=== PATIENT | female | born 1985 | race Caucasian/White ===

== ENCOUNTER 2016-06-04 08:58 | Day surgery (SDC) | payer OTHER ==
[2016-06-01 18:03] VITALS: BMI 35.9
[~2016-06-04 08:58] MED LIST: LACTATED RINGERS 1,000 ML IV SCH
[2016-06-04 09:13] VITALS: RESP 18; TEMP 98.5
[2016-06-04] MEDS ORDERED: LACTATED RINGERS 1,000 ML IV ONE (09:13)
[2016-06-04] MEDS ORDERED: LIDOCAINE 1% 20 ML VIAL (10MG/ML) FOR IV START INTRADERMA ONE (09:13)
[2016-06-04] MEDS ORDERED: PROPOFOL 10 MG/ML 20 ML VIAL IV ONE (10:08)
--- NOTE | 2016-06-04 10:21 | P.PCN ---
Date of Procedure: 06/04/16 Procedure(s) Performed: BRIEF HISTORY: Patient is a 30-year-old pleasant white female, scheduled for an elective colonoscopy as a part of evaluation of intermittent rectal bleeding for the last 1 year duration. PROCEDURE PERFORMED: Colonoscopy. PREOPERATIVE DIAGNOSIS: Intermittent rectal bleeding. IV sedation per Anesthesia. PROCEDURE: After informed consent was obtained, the patient, was brought into the endoscopy unit. IV conscious sedation was administered by Anesthesia under continuous monitoring. Digital rectal examination was normal. Initially the Olympus CF-160 flexible video colonoscope was then inserted in the rectum, gradually advanced into the cecum without any difficulty. Careful examination was performed as the scope was gradually being withdrawn. Ileocecal valve and the appendiceal orifice were visualized and appeared normal. Prep was excellent. Mucosa of the cecum, ascending colon, transverse colon, descending colon, sigmoid colon, and rectum appeared normal. Retroflexion was performed in the rectum and small internal hemorrhoids were seen. The patient tolerated the procedure well. IMPRESSION: Normal-appearing colon from rectum to cecum . Small internal hemorrhoids. RECOMMENDATIONS: Findings of this examination were discussed with the patient as well as a family. She was advised to be a high-fiber diet and fiber supplements on a regular basis.
[2016-06-04 11:00] VITALS: BP 134/73; PULSE 70
== END 2016-06-04 11:38 | disposition home or self-care (01) ==
LOC: ORWHC2ENDO 08:58
PROVIDERS: ATTEND Internal Medicine Gastroenterology
DX: K64.8 Other hemorrhoids (principal); Z87.19 Personal history of other diseases of the digestive system; G43.909 Migraine, unspecified, not intractable, without status migrainosus; Z79.1 Long term (current) use of non-steroidal anti-inflammatories (NSAID); Z79.3 Long term (current) use of hormonal contraceptives; Z79.899 Other long term (current) drug therapy
CPT/HCPCS: 81025; 45378; J2704

== ENCOUNTER → 2018-06-20 | Outpatient (CLI) | payer OTHER ==
[2018-06-20 20:36] LABS: Iron Saturation 25.75 (12.00-45.00)
== END | disposition home or self-care (01) ==
LOC: LABWHC1 12:31
PROVIDERS: ATTEND Family Medicine
DX: R79.0 Abnormal level of blood mineral (principal)
CPT/HCPCS: 36415; 82728; 83540; 83550

== ENCOUNTER 2018-06-22 08:02 | Day surgery (SDC) | payer OTHER ==
[2018-06-20 09:07] VITALS: BMI 35.5
[~2018-06-22 08:02] MED LIST changes: +DEXAMETHASONE SOD PHOSPHATE 10 MG/ML 1 ML VIAL IV ONE; +LIDOCAINE 1% 20 ML VIAL (10MG/ML) FOR IV START INTRADERMA PRN; +SCOPOLAMINE 1.5MG/72HR PATCH TRANSDERM ONE; +ceFAZolin IN SWFI 2 GM/20 ML SYRINGE IVP ONE
[2018-06-22] MEDS: HEPARIN SODIUM,PORCINE 5,000 UNIT/ML 1 ML VIAL SQ ONE ×2 (08:42→09:00)
[2018-06-22] MEDS: ONDANSETRON 4 MG/2 ML VIAL IVP ONE ×2 (08:42→11:38)
[2018-06-22] MEDS ORDERED: MIDAZOLAM 2 MG/2 ML VIAL IV ONE (08:49)
[2018-06-22] MEDS ORDERED: INDOCYANINE GREEN 25 MG VIAL IV STA (08:56)
--- NOTE | 2018-06-22 08:57 | P.GSHP ---
History of Present Illness H&P Date: 06/22/18 CHIEF COMPLAINT: Cholecystitis HISTORY OF PRESENT ILLNESS: The patient is a 32-year-old female who presents with history of epigastric including right upper quadrant abdominal pain. She underwent diagnostic studies for her gallbladder. Separately her clinical picture was consistent with cholecystitis. Now she presents for surgical intervention. PAST MEDICAL HISTORY: Please see list PAST SURGICAL HISTORY: Please see list MEDICATIONS: Please see list ALLERGIES: Denies. SOCIAL HISTORY: No illicit drug use or recent tobacco use FAMILY HISTORY: Pertinent for gallbladder disease REVIEW OF ORGAN SYSTEMS: CONSTITUTIONAL: No reports of fevers or chills. HEENT: Denies any troubles with the vision or hearing. ENDOCRINE: No reports of hypothyroidism. No diabetes. RESPIRATORY: No recent pneumonias. CARDIOVASCULAR: Denies chest pain or palpitations GI: No blood in stools or constipation. MUSCULOSKELETAL: Has occasional joint pain including back pain. NEURO: No seizure disorders or headaches. No recent stroke. PSYCH: No depression or suicidal ideation. GENITOURINARY: No active blood in urine. No urinary hesitancy. HEMATOLOGIC: No personal or family history of DVTs or pulmonary emboli. SKIN: No skin cancer. PHYSICAL EXAM: VITAL SIGNS: Afebrile vital signs stable GENERAL: Well-developed pleasant in no acute distress. HEENT: No scleral icterus. Extraocular movements grossly intact. Moist buccal mucosa. NECK: Supple without lymphadenopathy. CHEST: Unlabored respirations. Equal bilateral excursions. CARDIOVASCULAR: Regular rate regular rhythm rhythm. Distal 2+ pulses. ABDOMEN: Soft, nondistended. Tender along the epigastrium and right upper quadrant. MUSCULOSKELETAL: No clubbing, cyanosis, or edema. NEURO: Cranial nerves II to XII within normal limits. No focal or lateralizing signs. PSYCH: Alert and oriented to person, place and time. SKIN: Well-perfused good skin turgor. ASSESSMENT: 1. Epigastric and right upper quadrant abdominal pain 2. Chronic cholecystitis 3. Symptomatic gallstones. PLAN: 1. Will need a robotic cholecystectomy possible open. Benefits and risks were described. 2. Heparin for DVT prophylaxis 5000 units. 3. Antibiotic prophylaxis. Past Medical History Past Medical History: Asthma, Fibromyalgia, GERD/Reflux, Pneumonia, Skin Disorder Additional Past Medical History / Comment(s): migraines, past hx sinus tachycardia, arthritis and carpal tunnel in hands, eczema, IBS, History of Any Multi-Drug Resistant Organisms: None Reported Past Surgical History: Adenoidectomy, Ear Surgery, Orthopedic Surgery, Tonsillectomy Additional Past Surgical History / Comment(s): sinus surgery, rt foot surgery x 3 Past Anesthesia/Blood Transfusion Reactions: Previous Problems w/ Anesthesia Additional Past Anesthesia/Blood Transfusion Reaction / Comment(s): takes awhile to wake up Smoking Status: Never smoker - Past Family History Mother Family Medical History: No Reported History Medications and Allergies Home Medications Medication Instructions Recorded Confirmed Type Etonogestrel [Nexplanon ( 68 mg SQ DIRECTED 06/01/16 06/22/18 History control implant)] Beclomethasone Dip 80 Mcg/Puff 1 puff INHALATION BID 06/20/18 06/22/18 History [Qvar 80 mcg] Cetirizine HCl [Zyrtec] 10 mg PO HS 06/20/18 06/22/18 History Famotidine [Pepcid] 20 mg PO BID 06/20/18 06/22/18 History Ferrous Sulfate [Feosol] 325 mg PO DAILY 06/20/18 06/22/18 History Montelukast [Singulair] 10 mg PO HS 06/20/18 06/22/18 History Pramipexole [Mirapex] 0.5 mg PO HS 06/20/18 06/22/18 History Allergies Allergy/AdvReac Type Severity Reaction Status Date / Time No Known Allergies Allergy Verified 06/20/18 08:58 Surgical - Exam Vital Signs Temp Pulse Resp BP Pulse Ox 99.1 F 82 16 131/80 100 06/22/18 08:24 06/22/18 08:24 06/22/18 08:24 06/22/18 08:24 06/22/18 08:24
[2018-06-22] MEDS ORDERED: LIDOCAINE 1% INJ 10MG/ML (20 ML MDV) ONE (09:23)
[2018-06-22] MEDS ORDERED: INDOCYANINE GREEN 25 MG VIAL IV ONE (09:23)
[2018-06-22] MEDS ORDERED: NEOSTIGMINE 1 MG/ML 10 ML VIAL ONE (09:23)
[2018-06-22] MEDS ORDERED: SUCCINYLCHOLINE CHLORIDE 100 MG/5 ML SYR IV ONE (09:23)
[2018-06-22] MEDS ORDERED: VECURONIUM 10 MG VIAL IV ONE (09:23)
[2018-06-22] MEDS ORDERED: fentaNYL (PF) 50 MCG/ML 2 ML AMP ONE (09:23)
[2018-06-22] MEDS ORDERED: ROPIVACAINE 5 MG/ML 30 ML VIAL ONE (09:23)
[2018-06-22] MEDS ORDERED: MIDAZOLAM 2 MG/2 ML VIAL ONE (09:23)
[2018-06-22] MEDS ORDERED: GLYCOPYRROLATE 0.2 MG/ML 2 ML VIAL ONE (09:23)
[2018-06-22 09:32] LABS: Basophils % (A) 0 %; Eosinophils % (A) 1 %; HCT 37.8 % (34.0-46.0); HGB 12.6 gm/dL (11.4-16.0); Lymphocytes # (A) 2.1 k/uL (1.0-4.8); Lymphocytes % (A) 33 %; MCHC 33.4 g/dL (31.0-37.0); Mean Platelet Volume 6.4; Monocytes # (A) 0.3 k/uL (0-1.0); Monocytes % (A) 5 %; Neutrophils # (A) 3.8 k/uL (1.3-7.7); Neutrophils % (A) 59 %; Platelet Count 267 k/uL (150-450); RBC 4.06 m/uL (3.80-5.40); RDW 12.8 % (11.5-15.5); WBC 6.4 k/uL (3.8-10.6)
[2018-06-22 09:39] LABS: ALT 30 U/L (9-52); AST 28 U/L (14-36); Albumin 4.2 g/dL (3.5-5.0); Alkaline Phosphatase 66 U/L (38-126); Anion Gap 6 mmol/L; Blood Urea Nitrogen 16 mg/dL (7-17); Calcium 9.3 mg/dL (8.4-10.2); Carbon Dioxide 27 mmol/L (22-30); Chloride 108 mmol/L (98-107); Glucose 92 mg/dL (74-99); Potassium 4.1 mmol/L (3.5-5.1); Sodium 141 mmol/L (137-145); Total Bilirubin 1.3 mg/dL (0.2-1.3); Total Protein 7.2 g/dL (6.3-8.2)
[2018-06-22] MEDS ORDERED: BUPIVACAIN-EPI 0.25%-1:200,000 30 ML VIAL SQ ONE (09:56)
--- NOTE | 2018-06-22 10:27 | P.OP ---
Date of Procedure: 06/22/18 Description of Procedure: SURGEON: ZAKIYA WANG MD PREOPERATIVE DIAGNOSES: 1. Right upper quadrant abdominal pain 2. Chronic cholecystitis 3. Morbid obesity due to excess calories, BMI 35.5 4. Fibromyalgia 5. Asthma 6. Gastroesophageal reflux disease POSTOPERATIVE DIAGNOSES: 1. Right upper quadrant abdominal pain 2. Chronic cholecystitis 3. Morbid obesity due to excess calories, BMI 35.5 4. Fibromyalgia 5. Asthma 6. Gastroesophageal reflux disease 7. Fatty liver disease. OPERATION: Robotic-assisted da Momo Xi laparoscopic cholecystectomy, multiport with FIREFLY ESTIMATED BLOOD LOSS: 2 mL. SPECIMENS REMOVED: Gallbladder. COMPLICATIONS: None. OPERATIVE FINDINGS: 1. Chronic cholecystitis 2. Fatty liver disease, milkd 3. Console time 8 minutes INDICATIONS: The patient is a 32-year-old female who presents with cholelcystitis. Surgical intervention with a laparoscopic cholecystectomy was described at length including injury to the biliary tree, bleeding, infection, need for further surgery. Informed consent was obtained. Robotic assisted laparoscopic approach was described. Benefits and risks of the procedure including but not limited to bleeding, infection, injury to the biliary tree was described. Informed consent was obtained. DESCRIPTION OF PROCEDURE: Patient was brought to the operating room, placed in supine position. After general induction, the abdomen had been prepped and draped in standard sterile fashion. The robotic da Momo XI system was primed. After a timeout protocol was performed, the patient had been prepped and draped in standard sterile fashion. The patient was injected with indocyanine green. A 5 mm 0 degrees laparoscopic trocar entry was performed along the left upper quadrant. The abdomen insufflated to 15 mmHg pressure which was tolerated well. Diagnostic laparoscopy demonstrated no injury to bowel viscera or mesentery. The liver surface was unremarkable. Next, two 8 mm robotic ports were placed along the right upper abdomen. The camera 8-mm port was maintained along the epigastrium. Another 8 mm port was placed along the left upper abdominal wall after exchanging the 5 mm port. Please note that the ports were placed at least 10 to 15 cm away from the target anatomy of the gallbladder. The robot was docked along the left lateral abdomen. The patient was repositioned in reverse Trendelenburg position, 14-degrees with 0-degree camera. Using a grasper for arm 3, a grasper for arm 4, including hook cautery for arm 1 , the robotic system was docked and primed as described. Instruments were interchanged by the distribution center assistant including hook cautery, Bovie cautery and clip appliers. I had sat at the console. The gallbladder fundus was retracted over the dome of the liver. Initial attention was brought to the infundibulum which was gently retracted in the inferior lateral approach. Using a grasper, the cystic duct including the cystic artery was carefully skeletonized. FIREFLY was used to identify the cystic artery and cystic structures. Large PLASTIC clips were used throughout the entire case. Using a clip vector control assistant 2 clips were placed proximally, and 1 clip was placed distally along the cystic duct and then cauterized with the cautery. Again care was taken to avoid any injury to the biliary tree as the common bile duct was clearly visualized during this portion of dissection. Next, the cystic artery was similarly clipped and cauterized. Electro-Bovie cautery was used to remove the gallbladder from the hepatic fossa. Hemostasis was checked and found to be adequate. The robot was undocked. I re-scrubbed into the case. Using a 10 mm Endo Catch bag via the left upper quadrant incision, the specimen was removed from the abdominal cavity. All pneumoperitoneum instruments were evacuated from the abdominal cavity. The incisions were reapproximated using 4-0 Monocryl in an interrupted subcuticular fashion. Fascial defects were less than 8 mm in size. Please note along the trocar sites, local anesthetic was placed as a field block prior to insertion of all instruments. Liquid glue was applied to the skin. At the end of the procedure needle, sponge, and instrument count had been verified correct by the surgical assistant certified. The patient was transferred to postanesthesia care unit in stable condition. Intraoperative films were shared with the patient's family who were very pleased with the level of care. Plan - Discharge Summary Discharge Rx Participant: Yes New Discharge Prescriptions: New HYDROcodone/APAP 5-325MG [[place] 5-325] 1 tab PO Q4HR PRN 3 Days #18 tab PRN Reason: Pain Ibuprofen [Motrin] 600 mg PO Q8HR PRN #20 tab PRN Reason: Pain No Action Etonogestrel [Nexplanon ( control implant)] 68 mg SQ DIRECTED Pramipexole [Mirapex] 0.5 mg PO HS Ferrous Sulfate [Feosol] 325 mg PO DAILY Famotidine [Pepcid] 20 mg PO BID Montelukast [Singulair] 10 mg PO HS Cetirizine HCl [Zyrtec] 10 mg PO HS Beclomethasone Dip 80 Mcg/Puff [Qvar 80 mcg] 1 puff INHALATION BID Discharge Medication List Etonogestrel [Nexplanon ( control implant)] 68 mg SQ DIRECTED 06/01/16 [ History] Beclomethasone Dip 80 Mcg/Puff [Qvar 80 mcg] 1 puff INHALATION BID 06/20/18 [ History] Cetirizine HCl [Zyrtec] 10 mg PO HS 06/20/18 [History] Famotidine [Pepcid] 20 mg PO BID 06/20/18 [History] Ferrous Sulfate [Feosol] 325 mg PO DAILY 06/20/18 [History] Montelukast [Singulair] 10 mg PO HS 06/20/18 [History] Pramipexole [Mirapex] 0.5 mg PO HS 06/20/18 [History] HYDROcodone/APAP 5-325MG [[place] 5-325] 1 tab PO Q4HR PRN 3 Days #18 tab [Rx] Ibuprofen [Motrin] 600 mg PO Q8HR PRN #20 tab 06/22/18 [Rx] Follow up Appointment(s)/Referral(s): Zakiya Wang MD [STAFF PHYSICIAN] - 06/27/18 Patient Instructions/Handouts: Laparoscopic Cholecystectomy (DC) Activity/Diet/Wound Care/Special Instructions: No lifting over 10 pounds in 1 week. May shower. No bathtub soaks. Discharge Disposition: HOME SELF-CARE
[2018-06-22 10:35] VITALS: TEMP 97.9
--- NOTE | 2018-06-22 10:41 | P.ONQ ---
Anesthesiology Proc Note - PNB - Peripheral Nerve Block Performed Bilateral Transversus Abdominis Single Time Out Performed: Yes Procedure Start Time: 08:50 Procedure Stop Time: 09:00 Indication: Acute Post-Operative Pain, Analgesia, Requested by physician Sedation Type: Sedate with meaningful contact maintained Preparation: Sterile Prep Position: Supine Catheter: None Needle Types: On-Q Needle Size: 50mm (2") Needle Gauge: 21 Technique: Ultrasound Injectate: Other (see comment) (0.375% ropivacaine 20cc b/l) Blood Aspirated: No Pain Paresthesia on Injection Noted: No Resistance on Injection: Normal Events: Uneventful and Well Tolerated
[2018-06-22] MEDS: HYDROmorphone 0.5 MG/0.5 ML SYRINGE IVP PRN ×2 (11:01→11:09)
[2018-06-22] MEDS ORDERED: LACTATED RINGERS 1,000 ML IV ONE (11:09)
[2018-06-22] MEDS ORDERED: diphenhydrAMINE 50 MG/ML 1 ML VIAL IVP ONE (11:21)
[2018-06-22 12:44] VITALS: RESP 18
[2018-06-22] MEDS ORDERED: HYDROcodone/APAP 5-325MG 1 EACH TAB PO ONE (14:08)
[2018-06-22 14:10] VITALS: BP 104/56; PULSE 80
== END 2018-06-22 14:34 | disposition home or self-care (01) ==
LOC: OR 08:02
PROVIDERS: ATTEND Surgery Plastic and Reconstructive Surgery
DX: K81.1 Chronic cholecystitis (principal); K21.9 Gastro-esophageal reflux disease without esophagitis; K76.0 Fatty (change of) liver, not elsewhere classified; K58.9 Irritable bowel syndrome, unspecified; J45.909 Unspecified asthma, uncomplicated; M79.7 Fibromyalgia; L30.9 Dermatitis, unspecified; G43.909 Migraine, unspecified, not intractable, without status migrainosus; M13.80 Other specified arthritis, unspecified site; Z87.01 Personal history of pneumonia (recurrent); E66.01 Morbid (severe) obesity due to excess calories; Z68.35 Body mass index [BMI] 35.0-35.9, adult; G25.81 Restless legs syndrome; Z79.51 Long term (current) use of inhaled steroids; Z79.899 Other long term (current) drug therapy
CPT/HCPCS: 47562; S2900; 64488; 80053; 81025; 85025; 88304

== ENCOUNTER → 2019-04-23 | Outpatient (CLI) | payer OTHER ==
--- NOTE | 2019-04-24 05:10 | MR ---
EXAMINATION TYPE: MR ankle RT wo/w con DATE OF EXAM: 04/23/2019 COMPARISON: None HISTORY: Rt ankle/foot pain, complications from previous surgery CONTRAST: Standard multiplanar, multisequence MRI departmental protocol utilizing 7.5 mL intravenous Gadavist g adolinium contrast. FINDINGS: Achilles tendon is intact. Plantar fascia appears intact. Medial and lateral flexor tendons of the ankle appear intact. Ankle mortise is anatomic. The collateral ligaments are intact. Joint sp aces are fairly normal. I see no bony destructive process. There is no evidence of a soft tissue mass . On the proton density images there is slight increased fluid signal in the subcutaneous tissues danika und the ankle joint. Contrast images show no pathologic enhancement. IMPRESSION: Negative MR scan of the right ankle. No fracture. No evidence of ligament or tendon tear. Minimal sub cutaneous edema around the ankle joint.
== END | disposition home or self-care (01) ==
LOC: RADMRIMAIN 20:37
PROVIDERS: ATTEND Physician Assistant
DX: M25.471 Effusion, right ankle (principal); T84.84XD Pain due to internal orthopedic prosthetic devices, implants and grafts, subsequent encounter
CPT/HCPCS: 73723; A9585

== ENCOUNTER 2019-05-03 10:30 | Day surgery (SDC) | payer OTHER ==
[2019-05-01 12:22] VITALS: BMI 36.6
[~2019-05-03 10:30] MED LIST changes: +HYDROmorphone 0.5 MG/0.5 ML SYRINGE IVP PRN; +MIDAZOLAM 2 MG/2 ML VIAL IV PRN; +ONDANSETRON 4 MG/2 ML VIAL IVP ONE; -ceFAZolin IN SWFI 2 GM/20 ML SYRINGE IVP ONE
[2019-05-03] MEDS ORDERED: MIDAZOLAM 2 MG/2 ML VIAL IV ONE (11:42)
[2019-05-03] MEDS ORDERED: MIDAZOLAM 2 MG/2 ML VIAL ONE (14:27)
[2019-05-03] MEDS ORDERED: PROPOFOL 10 MG/ML 20 ML VIAL IV ONE (14:27)
[2019-05-03] MEDS ORDERED: SUCCINYLCHOLINE CHLORIDE 100 MG/5 ML SYR IV ONE (14:27)
[2019-05-03] MEDS ORDERED: LIDOCAINE 1% INJ 10MG/ML (20 ML MDV) ONE (14:27)
[2019-05-03] MEDS ORDERED: fentaNYL (PF) 50 MCG/ML 2 ML AMP ONE (14:27)
[2019-05-03] MEDS ORDERED: ALBUTEROL INHALER 60 PUFF/8 GM INHALER INHALATION ONE (14:27)
[2019-05-03] MEDS ORDERED: LACTATED RINGERS 1,000 ML IV ONE (14:52)
--- NOTE | 2019-05-03 15:23 | P.OP ---
Date of Procedure: 05/03/19 Preoperative Diagnosis: symptomatic hardware, right foot Postoperative Diagnosis: same Procedure(s) Performed: hardware removal, deep, right foot Anesthesia: SILVESTRE Surgeon: Mian Pascal Neurophysiological Technician #1: Guy Jimenez Pathology: none sent Condition: stable Disposition: PACU Indications for Procedure: the patient is very pleasant. His healthy 33-year-old female previously underwent a right modified Kidner procedure by a local paper machine tender. She initially did well but then developed tenderness and pain directly over the navicular tuberosity. She was seen in our office and placed in a boot. She continued to have pain. Her x-rays showed a prominent suture anchor in the n avicular tuberosity. This corresponded to a painful prominence on her foot. An MRI was obtained which showed the hardware and minimal tendon involvement. We discussed continued nonsurgical treatment versus surgery. The patient failed to improve with nonsurgical treatment and requested surgery. We discussed removing the hardware and if there is significant damage to the posterior tibial tendon in the process of removing the hardware or if the tendon was markedly degenerative forming and FDL tendon transfer and calyx slide. We discussed the potential risks and Occasions of surgery including but not limited to risk of infection, wound healing problems, damage to local blood vessels or nerves, continued or worsened pain, DVT, PE, other medical complications, dissatisfaction with surgery, and possibly loss of limb or life. The patient voiced her understanding of all these the most common complications other less common competitions are possible. She provided her consent to go forward with surgery. Operative Findings: there was a large knot from a nonabsorbable suture the subtendinous tissue responded to the prominence on exam. The suture anchor navicular tuberosity was prominent. Description of Procedure: The patient was identified in preoperative holding and the correct right leg was marked my initials. I reviewed the consent form with the patient and her mom. All her questions were answered. The patient was then brought back to the operating room by anesthesia. She was positioned on the OR table where general anesthetic and preoperative antibiotics were given. A tourniquet was applied the proximal aspect of the right leg. The right leg was then prepped and draped in standard sterile fashion. Prior to starting surgery timeout was performed identifying the correct patient, operative extremity, and procedure. The patient's leg was then elevated, exsanguinated with an Esmarch bandage, and the tourniquet was inflated to 250 mmHg. I began by outlining the prior surgical scar with a marker over the distal posterior tibial tendon. Skin incision was made a scalpel and dissection was carried down carefully through subcu tissue. A prominent knot of nonabsorbable sutures identified. This was traced down to the metallic suture anchor. All nonabsorbable suture and the suture anchor were removed. The posterior tibial tendon insertion of the navicular tuberosity was intact and the tendon appeared healthy. The wound was thoroughly irrigated and closed in layers. Half percent Marcaine was injected around the incision. A sterile dressing was applied. The tourniquet was let down. The patient was then awoken from her anesthetic, transferred to a gurney, and brought to recovery and procedure well.
[2019-05-03 15:33] VITALS: TEMP 97
[2019-05-03] MEDS ORDERED: ALBUTEROL NEBULIZED 2.5 MG/3 ML INHALATION ONE (15:40)
[2019-05-03 15:41] VITALS: RESP 18
[2019-05-03] MEDS ORDERED: HYDROcodone/APAP 5-325MG 1 EACH TAB PO ONE (16:29)
[2019-05-03 16:44] VITALS: BP 127/76; PULSE 90
== END 2019-05-03 17:22 | disposition home or self-care (01) ==
LOC: OR 10:30
PROVIDERS: ATTEND Orthopaedic Surgery
DX: T84.84XA Pain due to internal orthopedic prosthetic devices, implants and grafts, initial encounter (principal); M76.821 Posterior tibial tendinitis, right leg; M21.071 Valgus deformity, not elsewhere classified, right ankle; K21.9 Gastro-esophageal reflux disease without esophagitis; J45.909 Unspecified asthma, uncomplicated; M79.7 Fibromyalgia; M19.90 Unspecified osteoarthritis, unspecified site; Z79.51 Long term (current) use of inhaled steroids; Z79.899 Other long term (current) drug therapy; Z90.49 Acquired absence of other specified parts of digestive tract; Z90.89 Acquired absence of other organs; Z98.890 Other specified postprocedural states; Z82.49 Family history of ischemic heart disease and other diseases of the circulatory system
CPT/HCPCS: 81025; 20680; J2250; J1100; J0690; J2405; J2001; J3010; J0330; J2704

== ENCOUNTER → 2020-05-26 | Outpatient (CLI) | payer OTHER ==
[2020-05-26 15:01] LABS: Basophils % (A) 1 %; Eosinophils # (A) 0.1 k/uL (0-0.7); Eosinophils % (A) 1 %; HCT 40.6 % (34.0-46.0); HGB 13.3 gm/dL (11.4-16.0); Lymphocytes # (A) 2.6 k/uL (1.0-4.8); Lymphocytes % (A) 38 %; MCH 30.9 pg (25.0-35.0); MCHC 32.9 g/dL (31.0-37.0); Mean Platelet Volume 7.2; Monocytes # (A) 0.3 k/uL (0-1.0); Monocytes % (A) 4 %; Neutrophils # (A) 3.6 k/uL (1.3-7.7); Neutrophils % (A) 54 %; Platelet Count 275 k/uL (150-450); RBC 4.32 m/uL (3.80-5.40); RDW 11.9 % (11.5-15.5); WBC 6.7 k/uL (3.8-10.6)
== END | disposition home or self-care (01) ==
LOC: LABPAT 13:41
PROVIDERS: ATTEND Obstetrics & Gynecology
DX: Z01.818 Encounter for other preprocedural examination (principal); I10 Essential (primary) hypertension
CPT/HCPCS: 36415; 85025; 93005

== ENCOUNTER 2020-06-16 08:54 | Day surgery (SDC) | payer OTHER ==
[2020-06-12 13:07] VITALS: BMI 35.1
--- NOTE | 2020-06-12 14:39 | HP ---
HISTORY AND PHYSICAL DATE OF SERVICE: Tuesday, June 16, 2020. HISTORY OF PRESENT ILLNESS: The patient is a 34-year-old 2, para 2-0-0-2, who presented on referral from Dr. Martinez for discussion of tubal ligation. She and I had a long discussion regarding multiple different options of long-term, but reversible methods of control and she has declined them in favor of laparoscopic bilateral tubal occlusion with Filshie clips understanding that this is permanent sterilization. She has expressed a desire for no further childbearing. PAST MEDICAL HISTORY: Significant for allergies. She also has history of anemia, heartburn, and hypertension. SURGICAL HISTORY: She had adenoidectomy as a child, cholecystectomy 2018, surgical repair of a foot fracture, sinus surgery and a tonsillectomy. Apparently no anesthetic concerns. OBSTETRICAL HISTORY: 2, para 2-0-0-2 with two term vaginal deliveries without complications. GYNECOLOGIC HISTORY: Unremarkable with no history of any infections to include STDs. FAMILY HISTORY: Noncontributory. SOCIAL HISTORY: The patient is single and is a nonsmoker. 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 She is a nonsmoker and reports occasional alcohol and has no other social concerns. CURRENT MEDICATIONS: Current medications include: 1. Famotidine 20 mg daily. 2. Fluticasone nasal spray. 3. Latuda 40 mg daily. 4. Montelukast 10 mg daily. 5. Qvar inhaler as needed. 6. Trazodone 100 mg daily. 7. Zyrtec daily. ALLERGIES: No known drug allergies. REVIEW OF SYSTEMS: Confined to history of present illness. PHYSICAL EXAMINATION: Vital signs are stable and the patient is afebrile. In general, this is a well- developed, well-nourished white female in no acute distress. Her heart has regular rhythm and rate without murmur. Her lungs are clear to auscultation bilaterally in all ndiaye. Her abdomen is nondistended, has normoactive bowel sounds, soft, nontender, and without any palpable masses, hepatosplenomegaly, or hernias. Her extremities without any cyanosis, clubbing, or edema and are nontender to palpation bilaterally. Pelvic examination is deferred to the operating room. ASSESSMENT AND PLAN: Multiparity, undesired fertility: The patient has been made aware and has been aware of multiple long-term reversible options, but has instead requested permanent sterilization with laparoscopic bilateral tubal occlusion with Filshie clips. The risks and complications of the procedure have been thoroughly discussed including the risks for bleeding, bleeding requiring transfusion, infection, and injury to local structures to include the bowel, bladder, ureters. She has understood all of this and has agreed to proceed. We are scheduled for the procedure on the morning of June 16, 2020. MMODL / IJN: [id number] /
[~2020-06-16 08:54] MED LIST changes: -DEXAMETHASONE SOD PHOSPHATE 10 MG/ML 1 ML VIAL IV ONE; -HYDROmorphone 0.5 MG/0.5 ML SYRINGE IVP PRN; -LACTATED RINGERS 1,000 ML IV SCH; -LIDOCAINE 1% 20 ML VIAL (10MG/ML) FOR IV START INTRADERMA PRN; -MIDAZOLAM 2 MG/2 ML VIAL IV PRN; -ONDANSETRON 4 MG/2 ML VIAL IVP ONE; +Pre Op ABX Message 1 EACH MISC MISCELLANE ONE; -SCOPOLAMINE 1.5MG/72HR PATCH TRANSDERM ONE
[2020-06-16] MEDS ORDERED: DEXAMETHASONE SOD PHOSPHATE 4 MG/ML 1 ML VIAL IV ONE (09:03)
[2020-06-16] MEDS ORDERED: ONDANSETRON 4 MG/2 ML VIAL IVP ONE (09:03)
[2020-06-16] MEDS ORDERED: LACTATED RINGERS 1,000 ML IV SCH ×2 (09:03→11:00)
[2020-06-16] MEDS ORDERED: MIDAZOLAM 2 MG/2 ML VIAL IV PRN (09:03)
[2020-06-16] MEDS ORDERED: LIDOCAINE 1% (10MG/ML) FOR IV START INTRADERMA PRN (09:03)
[2020-06-16] MEDS ORDERED: HYDROmorphone 0.5 MG/0.5 ML SYRINGE IVP PRN (09:03)
[2020-06-16 09:20] VITALS: RESP 16
[2020-06-16] MEDS ORDERED: BUPIVACAINE (PF) 0.25% 30 ML VIAL SQ ONE ×2 (10:01→10:41)
[2020-06-16] MEDS ORDERED: KETOROLAC 15 MG/ML 1 ML VIAL ONE (10:10)
[2020-06-16] MEDS ORDERED: MIDAZOLAM 2 MG/2 ML VIAL ONE (10:10)
[2020-06-16] MEDS ORDERED: SUCCINYLCHOLINE CHLORIDE 100 MG/5 ML SYR IV ONE (10:10)
[2020-06-16] MEDS ORDERED: PROPOFOL 10 MG/ML 20 ML VIAL IV ONE (10:10)
[2020-06-16] MEDS ORDERED: fentaNYL (PF) 50 MCG/ML 2 ML AMP ONE (10:10)
[2020-06-16 10:58] VITALS: TEMP 97.1
[2020-06-16] MEDS ORDERED: ONDANSETRON 4 MG/2 ML VIAL IVP PRN (10:59)
[2020-06-16] MEDS ORDERED: IBUPROFEN 600 MG TAB PO PRN (10:59)
[2020-06-16] MEDS ORDERED: diphenhydrAMINE 50 MG/ML 1 ML VIAL IVP PRN (10:59)
[2020-06-16] MEDS ORDERED: Acetaminophen-Codeine 300-30mg TAB PO PRN ×2 (10:59)
[2020-06-16] MEDS ORDERED: KETOROLAC 15 MG/ML 1 ML VIAL IVP PRN (10:59)
[2020-06-16] MEDS ORDERED: SIMETHICONE 80 MG CHEWABLE PO PRN (10:59)
[2020-06-16] MEDS ORDERED: METOCLOPRAMIDE 5 MG/ML 2 ML VIAL IVP PRN (10:59)
--- NOTE | 2020-06-16 11:05 | P.OP ---
Date of Procedure: 06/16/20 Preoperative Diagnosis: #1. Multiparity #2. Undesired fertility Postoperative Diagnosis: Same Procedure(s) Performed: #1. Laparoscopic bilateral tubal occlusion with Filshie clips Anesthesia: SILVESTRE Surgeon: René Smith Estimated Blood Loss (ml): 5 IV fluids (ml): 600 Urine output (ml): 10 Pathology: none sent Condition: stable Disposition: PACU Operative Findings: Preoperative pelvic examination demonstrated a 4-5 week midplane mobile normal shaped uterus with normal adnexa bilaterally. These findings were confirmed intraoperatively with an entirely normal uterus, tubes, and ovaries. A Filshie clip was placed firmly across the isthmic portion of each tube approximately 2-3 cm from the cornu on each side. There was no evidence of any endometriosis or other pathology in the pelvis or elsewhere. The small and large bowel as well as the appendix and liver and diaphragm were entirely normal to inspection. Description of Procedure: Patient was prepped and draped in usual fashion after general endotracheal anesthesia was administered by the anesthesiologist. A speculum was placed allowing placement of a single-tooth tenaculum on the anterior lip of the cervix allowing placement of a acorn cannula for manipulation. This was carried out after draining the bladder approximate 10 mL of clear karly urine. Attention was then turned to the abdomen where a roughly 5 mm incision was made in a vertical fold of the umbilicus allowing insertion of a 5 mm optical trocar under direct visualization without difficulty. A pneumoperitoneum was then created and Trendelenburg positioning utilized to sweep the bowel from the pelvis. A site was selected approximate 4-5 cm above the pubic symphysis in the midline where a roughly 8 mm incision was made in the transverse plane allowing insert ion of an 8 mm trocar under direct visualization without difficulty. The blunt probe was further used to sweep the bowel from the pelvis. The probe was replaced with a Filshie clip applicator which was utilized to place a clip across the isthmic portion of the right fallopian tube approximately 2-3 cm from the cornu where it was firmly affixed. A similar operation was carried out on the left side without difficulty. Examination the pelvis demonstrated no further findings to include endometriosis or any other pathology. Examination of the upper abdomen demonstrated a normal small and large intestine were seen as well as appendix, liver, and diaphragm. The scope was removed and the pneumoperitoneum evacuated through the 2 ports and the ports removed. The skin was reapproximated with interrupted subcuticular stitches of 4-0 Vicryl followed by half-inch Steri-Strips placed with Mastisol. The 2 incisions were then infused with a total of 10 mL of half percent Marcaine without epinephrine divided equally between the 2 incision sites. Aspirin blood loss for the case was less than 5 mL. There were no complications. All sponge, instrument, and needle counts were correct. The patient tolerated the procedure well and proceeded to the recovery room in stable condition.
[2020-06-16] MEDS ORDERED: MEPERIDINE 50 MG/ML SYRINGE IVP ONE ×2 (11:32→11:37)
[2020-06-16] MEDS ORDERED: LACTATED RINGERS 1,000 ML IV ONE (11:51)
[2020-06-16] MEDS ORDERED: diphenhydrAMINE 50 MG/ML 1 ML VIAL IVP ONE (12:51)
[2020-06-16 14:35] VITALS: BP 129/65; PULSE 74
== END 2020-06-16 14:33 | disposition home or self-care (01) ==
LOC: OR 08:54
PROVIDERS: ATTEND Obstetrics & Gynecology
DX: Z30.2 Encounter for sterilization (principal); D64.9 Anemia, unspecified; I10 Essential (primary) hypertension; R12 Heartburn; Z87.81 Personal history of (healed) traumatic fracture; Z90.89 Acquired absence of other organs; Z90.49 Acquired absence of other specified parts of digestive tract; Z98.890 Other specified postprocedural states; Z79.899 Other long term (current) drug therapy
CPT/HCPCS: 81025; 58671; J2250; J1200; J1100; J2175; J2405; J3010; J1885; J0330; J2704; J1170

== ENCOUNTER → 2020-10-15 | Outpatient (CLI) | payer OTHER ==
[2020-10-15 16:00] LABS: Basophils # (A) 0.04 X 10*3/uL (0.00-0.10); Basophils % (A) 0.6 %; Eosinophils # (A) 0.04 X 10*3/uL (0.04-0.35); Eosinophils % (A) 0.6 %; HCT 42.1 % (37.2-46.3); HGB 13.2 g/dL (12.0-15.0); Lymphocytes # (A) 2.44 X 10*3/uL (0.90-5.00); Lymphocytes % (A) 39.6 %; MCH 30.4 pg (27.0-32.0); MCHC 31.4 g/dL (32.0-37.0); Mean Platelet Volume 11.5 fL (9.5-12.2); Monocytes # (A) 0.31 X 10*3/uL (0.20-1.00); Neutrophils # (A) 3.32 X 10*3/uL (1.80-7.70); Platelet Count 285 X 10*3/uL (140-440); RBC 4.34 X 10*6/uL (4.10-5.20); RDW 12.2 % (11.5-14.5); WBC 6.16 X 10*3/uL (4.50-10.00)
[2020-10-15 18:11] LABS: Erythrocyte Sedimentation Rate 23 mm/Hr (0-20)
[2020-10-16 00:20] LABS: C Reactive Protein 0.5 mg/dL (0.0-0.8)
[2020-10-16 08:28] LABS: HLA B27 NEGATIVE
== END | disposition home or self-care (01) ==
LOC: LABWHC1 08:32
PROVIDERS: ATTEND Orthopaedic Surgery
DX: M25.50 Pain in unspecified joint (principal)
CPT/HCPCS: 36415; 84550; 85025; 85652; 86038; 86140; 86431; 86812

== ENCOUNTER → 2024-03-27 | Outpatient (CLI) | payer OTHER ==
--- NOTE | 2024-04-01 19:41 | MR ---
EXAMINATION TYPE: MR iac wo/w con DATE OF EXAM: 03/27/2024 10:30 PM COMPARISON: None. CLINICAL INDICATION: Female, 38 years old with history of H93.19, dizziness, tinnitus, migraines. TECHNIQUE: Multiplanar, multiecho imaging on a 3.0 Liberty magnet is performed through the brain. Atte ntion is paid to the internal auditory canals with thin section imaging. Postcontrast imaging is per formed through the internal auditory canals. IV Contrast: 7 mL Gadavist (None, if empty) FINDINGS: Diffusion-weighted imaging is performed. No suspicious hyperintensity is present to suggest an acute intracranial infarct or acute ischemic area. Optic chiasm appears normal. Signal within the brain appears unremarkable. No suspicious abnormality in the region semicircular ca nals and middle ears. No suspicious fluid collections within the mastoid air cells. On the inversion recovery there were 2 punctate hyperintensities within the right cerebral subcortica l white matter could be related to migraine headaches. Thin section imaging is performed through the internal auditory canals and cerebellar pontine angles. No cerebellar pontine angle masses are evident. The internal auditory canals appear normal without expansion or erosion. Postcontrast imaging was performed. No suspicious enhancement is evident within the internal audito ry canals or the included portions of the brain. IMPRESSION: 1. No suspicious abnormality internal auditory canals or cerebellar pontine angles. 2. Two punctate hyperintensities in subcortical white matter of the right parietal occipital region a re nonspecific but can be related to migraine headaches. [facility], , 04/01/2024 7:39 PM
== END | disposition home or self-care (01) ==
LOC: RADMRIMAIN 21:20
PROVIDERS: ATTEND Otolaryngology
DX: H93.12 Tinnitus, left ear (principal); G43.909 Migraine, unspecified, not intractable, without status migrainosus; R42 Dizziness and giddiness
CPT/HCPCS: 70553; A9585